=== PATIENT | male | born 1935 | race Caucasian/White ===

== ENCOUNTER → 2017-08-18 | Outpatient (CLI) | payer MEDICARE, OTHER ==
[~2017-08-18] MED LIST: ASPI81EC; ASPI81EC PO; METO100 PO; METO50ER PO; WARF5 PO
[2017-08-18 17:37] LABS: BASOPHILS ABSOLUTE AUTO 0.09 K/mm3 (0.00-0.23); BASOPHILS PERCENT AUTO 1 % (0-2); EOSINOPHILS ABSOLUTE AUTO 0.23 K/mm3 (0.00-0.68); EOSINOPHILS PERCENT AUTO 2 % (0-6); Hematocrit 33.6 % (37.0-53.0); IMMATURE GRAN PERCENT AUTO 1 % (0-1); LYMPHOCYTES ABSOLUTE AUTO 1.34 K/mm3 (0.84-5.20); LYMPHOCYTES PERCENT AUTO 12 % (21-46); MONOCYTES ABSOLUTE AUTO 1.04 K/mm3 (0.16-1.47); MONOCYTES PERCENT AUTO 9 % (4-13); Mean Corpuscular HGB 30.7 pg (26.0-34.0); Mean Corpuscular HGB Conc 32.7 g/dL (31.5-36.5); Mean Corpuscular Volume 94 fL (80-100); Mean Platelet Volume 9.6 fL (9.1-12.4); NEUTROPHILS ABSOLUTE AUTO 8.74 K/mm3 (1.96-9.15); NEUTROPHILS PERCENT AUTO 76 % (41-73); Platelet Count 494 K/mm3 (150-400); RDW Coefficient Variation 16.4 % (11.7-14.2); RDW Standard Deviation 55.8 fL (35.1-46.3); Red Blood Cell Count 3.58 M/mm3 (4.30-5.90); White Blood Cell Count 11.54 K/mm3 (4.00-11.30)
[2017-08-18 17:50] LABS: Alanine Aminotransfer (ALT/SGP 55 U/L (12-78); Albumin, Blood 3.2 g/dL (3.4-5.0); Albumin/Globulin Ratio 0.8 (0.8-1.8); Alk Phos 183 U/L (40-126); Anion Gap 8 mmol/L (6-16); Aspartate Aminotrans (AST/SGOT 52 U/L (12-37); Bilirubin, Total 0.7 mg/dL (0.1-1.0); Blood Urea Nitrogen 25 mg/dL (8-24); Bun/Creatinine Ratio 26.3 (12.0-20.0); CO2, Blood 26 mmol/L (21-32); Calcium, Blood 9.3 mg/dL (8.5-10.1); Chloride, Blood 101 mmol/L (98-108); Creatinine, Blood 0.95 mg/dL (0.60-1.20); Globulin, Blood 4.1 g/dL (2.2-4.0); Glomerular Filtration Rate >60 (60-); Glucose, Blood 103 mg/dL (70-99); Potassium, Blood 4.6 mmol/L (3.5-5.5); Sodium, Blood 135 mmol/L (136-145); Total Protein, Blood 7.3 g/dL (6.4-8.2); Troponin I 0.033 ng/mL (0.000-0.040)
== END ==
LOC: LAB EV 17:29
PROVIDERS: Internal Medicine
DX: I25.10 Atherosclerotic heart disease of native coronary artery without angina pectoris (principal)
CPT/HCPCS: 80053; 84484; 85025

== ENCOUNTER 2025-01-12 06:11 | Inpatient (IN) | payer MEDICARE, OTHER ==
[~2025-01-12] VITALS: Ht 172.7 cm; Wt 95.1 kg
[2025-01-12] MEDS ORDERED: METOPROLOL SUCC ER 5 (06:26)
[2025-01-12] MEDS ORDERED: Aspir 8181 MG PO (06:34)
[2025-01-12] MEDS ORDERED: METO25 PO (06:34)
[2025-01-12] MEDS ORDERED: GLUC500 PO (06:35)
[2025-01-12] MEDS ORDERED: CO Q10100 MG PO (06:36)
[2025-01-12] MEDS ORDERED: B-12500 MC2 PO (06:36)
[2025-01-12] MEDS ORDERED: HYDCHL25 PO (06:38)
[2025-01-12] MEDS ORDERED: LOSARTAN POTASS25 MG (06:38)
[2025-01-12 07:03] LABS: BASOPHILS ABSOLUTE AUTO 0.04 K/mm3 (0.00-0.23); BASOPHILS PERCENT AUTO 0 % (0-2); EOSINOPHILS ABSOLUTE AUTO 0.08 K/mm3 (0.00-0.68); EOSINOPHILS PERCENT AUTO 1 % (0-6); Hematocrit 46.0 % (37.0-53.0); Hemoglobin 15.3 g/dL (13.5-17.5); IMMATURE GRAN ABSOLUTE AUTO 0.04 K/mm3 (0.00-0.10); IMMATURE GRAN PERCENT AUTO 0 % (0-1); LYMPHOCYTES ABSOLUTE AUTO 1.14 K/mm3 (0.84-5.20); LYMPHOCYTES PERCENT AUTO 8 % (21-46); MONOCYTES ABSOLUTE AUTO 1.84 K/mm3 (0.16-1.47); MONOCYTES PERCENT AUTO 12 % (4-13); Mean Corpuscular HGB Conc 33.3 g/dL (31.5-36.5); Mean Corpuscular Volume 93 fL (80-100); NEUTROPHILS ABSOLUTE AUTO 11.94 K/mm3 (1.96-9.15); NEUTROPHILS PERCENT AUTO 79 % (41-73); NRBC ABSOLUTE 0.00 K/mm3 (0.00-0.02); NRBC Auto 0.0 /100 WBC (0.0-0.2); Platelet Count 149 K/mm3 (150-400); RDW Coefficient Variation 15.5 % (11.7-14.2); RDW Standard Deviation 53.3 fL (35.1-46.3)
[2025-01-12 07:13] LABS: Anion Gap 7.0 mmol/L (3-11); Blood Urea Nitrogen 28.0 mg/dL (8-24); CO2, Blood 19.0 mmol/L (21-32); Calcium, Blood 6.7 mg/dL (8.5-10.1); Chloride, Blood 119.0 mmol/L (98-108); Creatinine, Blood 0.8 mg/dL (0.60-1.20); Glucose, Blood 95.0 mg/dL (70-99); Potassium, Blood 3.3 mmol/L (3.5-5.5); Sodium, Blood 142.0 mmol/L (136-145)
[2025-01-12 07:27] LABS: Alanine Aminotransfer (ALT/SGP 21.0 U/L (12-78); Albumin, Blood 2.5 g/dL (3.4-5.0); Albumin/Globulin Ratio 0.9 (0.8-1.8); Aspartate Aminotrans (AST/SGOT 41.0 U/L (12-37); Bilirubin, Direct 0.1 mg/dL (0.0-0.3); Bilirubin, Indirect 0.3 mg/dL (0.1-0.7); Bilirubin, Total 0.4 mg/dL (0.1-1.0); Globulin, Blood 2.9 g/dL (2.2-4.0); Total Protein, Blood 5.4 g/dL (6.4-8.2)
[2025-01-12 07:55] LABS: Source, Urine Clean Catch
[2025-01-12] MEDS ORDERED: FentaNYL Citrate 50 MCG/ML 2 ML Injection IV ONE (08:20)
[2025-01-12 08:26] LABS: Bilirubin, Urine Neg (Neg); Color, Urine Yellow (P-Yellow); Glucose Qualitative, Urine Neg (Neg); Ketones, Urine Neg (Neg); Leukocyte Esterase, Urine Neg (Neg); Protein, Urine 1+ (Neg); Specific Gravity, Urine 1.015 (1.003-1.022); Urobilinogen, Urine NORM (Normal)
[2025-01-12] MEDS ORDERED: NS 1,000 ML IV SCH ×2 (08:55→15:00)
[2025-01-12] MEDS ORDERED: Lidocaine 2% Jelly Uro-Jet UR ONE (09:10)
[2025-01-12] MEDS ORDERED: Morphine Sulfate 4 MG/1 ML Injection IV ONE (12:35)
[2025-01-12] MEDS ORDERED: Ondansetron HCl 2 MG / ML 2ML Vial IV PRN (14:40)
[2025-01-12] MEDS ORDERED: HYDROmorphone HCl/Pf 1MG SYR IV PRN ×2 (14:45→17:25)
[2025-01-12 16:13] LABS: Magnesium, Blood 1.9 mg/dL (1.6-2.4)
[2025-01-12] MEDS ORDERED: METO50ER PO (17:06)
[2025-01-12] MEDS ORDERED: C COMPLEX1000 M1 PO (17:08)
[2025-01-12] MEDS ORDERED: Vitamin D1000 UNI1 PO (17:08)
[2025-01-12 17:31] VITALS: BP 91/78
[2025-01-12] MEDS ORDERED: Metoprolol Tartrate 1 MG/ML 5 ML VIAL IV PRN (17:45)
[2025-01-12] MEDS ORDERED: Morphine Sulfate 10 MG/ML 1MLSYR IV PRN (17:50)
[2025-01-12] MEDS ORDERED: Mag Hydrox/Al Hydrox/Simeth 18 ML,Lidocaine 2% Viscous Soln 9 ML,Atropine/Scopalam/Hyos... PO ONE (17:50)
--- NOTE | 2025-01-12 18:14 | NUR ---
PT ARRIVED IN THE UNIT FROM [facility], PT IS HERE FOR EPIGASTRIC PAIN WITH TACHYCARDIA. PT WAS A LITTLE DROWSY UPON ARRIVAL PT RECEIVED 0.5MG DOSE OF DILAUDID IV. FAMILY AT BEDSIDE AND WAS TIMOTEO TO PROVIDE INFORMATION. VITALS HRR AV PACED 60'S, SBP SOFT 80-90'S MAP >65, SATS ABOVE 90% ON 2L OF O2, PT HAS NOTICEABLE SLEEP APNEA DESATS TO LOW 80'S THEN COMES BACK UP TO 90'S WITH FAST BREATHING. PT REFUSED DINNER DUE TO ABDOMINAL DISCOMFORT, PT ABDOMEN IS DISTENDED, MADE AWARE ORDERED GI COCKTAIL. NS RUNNING AT 125MLS/HR. MOORE WAS PLACED IN THE ER DUE TO RETENTION, DRAINING YELLOW URINE VIA GRAVITY. PT RESTING AT THIS TIME. CALL LIGHTS IN REACH WILL REPORT TO ONCOMING SHIFT
--- NOTE | 2025-01-12 19:42 | NUR ---
ASSUMPTION OF CARE ASSUMED PT'S CARE AT 1900,BEDSIDE REPORT COMPLETED.PT WIDE AWAKE RESTING IN BED.PLAN OF CARE REVIEWED.IV FLUIDS INFUSING ORDERED.PT DENIES PAIN,DENIES NEEDS AT THIS TIME.CALL LIGHT AND PT'S ITEMS WITHIN REACH.MONITORING ONGOING PER CAREPLAN.
[2025-01-12 20:26] VITALS: BP 144/108
[2025-01-12 22:00] VITALS: BP 107/54
[2025-01-12 23:00] VITALS: BP 92/69
[2025-01-13] VITALS: BP 102/58
[2025-01-13 01:00] VITALS: BP 91/55
[2025-01-13 03:53] VITALS: BP 99/60
[2025-01-13 06:06] LABS: Alanine Aminotransfer (ALT/SGP 24.0 U/L (12-78); Albumin, Blood 3.3 g/dL (3.4-5.0); Albumin/Globulin Ratio 0.9 (0.8-1.8); Anion Gap 8.0 mmol/L (3-11); Aspartate Aminotrans (AST/SGOT 39.0 U/L (12-37); Bilirubin, Total 0.7 mg/dL (0.1-1.0); Blood Urea Nitrogen 31.0 mg/dL (8-24); CO2, Blood 22.0 mmol/L (21-32); Calcium, Blood 8.2 mg/dL (8.5-10.1); Chloride, Blood 109.0 mmol/L (98-108); Creatinine, Blood 1.21 mg/dL (0.60-1.20); Globulin, Blood 3.5 g/dL (2.2-4.0); Glucose, Blood 87.0 mg/dL (70-99); Potassium, Blood 4.8 mmol/L (3.5-5.5); Sodium, Blood 134.0 mmol/L (136-145); Total Protein, Blood 6.8 g/dL (6.4-8.2)
--- NOTE | 2025-01-13 07:06 | NUR ---
PT MONITORED THROUGH THE SHIFT.PT GIVEN PRN MORPHINE FOR EPIGASTRIC PAIN.PT REFUSED TO TAKE THE GI COCKTAIL.PT'S HR WENT UP TO 140'S BUT DID NOT SUSTAIN ONCE IN THE SHIFT .BP REMAIN SOFT BUT MAP WNL.PT DENIES PAIN,DENIES NEEDS AT THIS TIME.CALL LIGHT AND PT'S ITEMS WITHIN REACH.MONITORING ONGPOING PER JORGE.
[2025-01-13 08:01] VITALS: BP 119/54
[2025-01-13] MEDS ORDERED: Enoxaparin 40 MG/0.4 ML SYR SC SCH (09:00)
[2025-01-13] MEDS ORDERED: Cholecalciferol 1000 Unit Tablet (=25MCG) PO SCH (09:00)
[2025-01-13] MEDS ORDERED: CO ENZYME Q10 PO SCH (09:00)
[2025-01-13] MEDS ORDERED: Pantoprazole Sodium 40 MG Injection IV SCH ×2 (09:00→16:30)
[2025-01-13] MEDS ORDERED: Mag Hydrox/Al Hydrox/Simeth 18 ML,Lidocaine 2% Viscous Soln 9 ML,Atropine/Scopalam/Hyos... PO ONE (11:40)
[2025-01-13 11:44] VITALS: BP 101/67
--- NOTE | 2025-01-13 16:24 | NUR ---
SHIFT SUMMARY PATIENT IS AOX3-4. [facility], HAS HEARING AIDES. FAMILY AND SPOUSE IN ROOM T/O DAY TO ASSIST WITH QUESTIONS. PATIENT HAS UPPER GASTRIC REPORTS 12/17 AT [facility]. MEDICATED PER EMAR. PROTONIX STARTED TODAY. SURGICAL CONSULT TODAY. DR. WONG IN TO SEE PATIENT. NO NEW ORDERS/PROCEDURES. MOORE REMAINS IN PLACE. DRAINING TO GRAVITY. HEART HEALTHY DIET. ON TELE, SR 70-80S. OCCASIONAL TACHY IN 100S DOES NOT SUSTAIN. VSS, CALL LIGHT IN REACH.
--- NOTE | 2025-01-13 18:21 | NUR ---
TRANSFER REPORT TO [facility] TO ASSUME CARE, PATIENT TO GO TO ROOM 325, MEDICAL STATUS NO TELE.
[2025-01-13 19:34] VITALS: BP 105/62
[2025-01-14 03:01] VITALS: BP 115/78
--- NOTE | 2025-01-14 03:35 | NUR ---
SHIFT SUMMARY: AOX4. CURRENTLY ON 2L O2. MOORE IN PLACE, PATENT, DRAINING TO GRAVITY. PT IS COMPLAINING OF MODERATE TO SEVERE PAIN THROUGHOUT THE SHIFT. MORPHINE GIVEN PER eMAR. PT IS CONCERNED ABOUT NOT BEING ABLE TO EAT, BUT ADVISED PT TO EAT SMALL MEALS AND THAT PT COULD ALWAYS REQUEST SNACKS IF MEALS ARE TOO MUCH TO EAT AT ONCE. CALL LIGHT IS WITHIN REACH. BED IS LOW AND LOCKED.
[2025-01-14 06:14] LABS: Hematocrit 44.3 % (37.0-53.0); Hemoglobin 14.6 g/dL (13.5-17.5); Mean Corpuscular HGB Conc 33.0 g/dL (31.5-36.5); Mean Corpuscular Volume 95 fL (80-100); NRBC ABSOLUTE 0.00 K/mm3 (0.00-0.02); NRBC Auto 0.0 /100 WBC (0.0-0.2); Platelet Count 145 K/mm3 (150-400); RDW Coefficient Variation 16.3 % (11.7-14.2); RDW Standard Deviation 57.1 fL (35.1-46.3)
[2025-01-14 06:32] LABS: Anion Gap 7.0 mmol/L (3-11); Blood Urea Nitrogen 37.0 mg/dL (8-24); CO2, Blood 23.0 mmol/L (21-32); Calcium, Blood 8.4 mg/dL (8.5-10.1); Chloride, Blood 109.0 mmol/L (98-108); Creatinine, Blood 1.37 mg/dL (0.60-1.20); Glucose, Blood 85.0 mg/dL (70-99); Potassium, Blood 4.8 mmol/L (3.5-5.5); Sodium, Blood 134.0 mmol/L (136-145)
[2025-01-14 07:36] VITALS: BP 120/82
[2025-01-14] MEDS ORDERED: NS 1,000 ML IV SCH (13:00)
--- NOTE | 2025-01-14 13:26 | NUR ---
PT TAKEN TO DAY SURGERY PT TRANSFERED VIA CART TO DAY SURGERY AT THIS TIME. PT WAS A/OX4, HARD OF HEARING. PT WAS VERY SOB WITH EXCERTION WHEN GETTING UP FROM THE BED TO THE CART. THE ANITHESIOLOGIST CAME UP TO EVALUATE THE PT BEFORE TAKEING HIM TO DAY SURGERY. O2 WAS APPLIED TO THE PT
[2025-01-14] MEDS ORDERED: Etomidate 2MG / ML 10ML Vial ONE (13:29)
[2025-01-14] MEDS ORDERED: Benzocaine Oral Spray 0.5ML UD ONE (13:30)
--- NOTE | 2025-01-14 13:30 | NUR ---
01/14/25 1330 Berta Rollins History, Chart, Medications and Allergies reviewed before start of procedure. MONITOR INTACT WITH CONTINUOUS PULSE OXIMETRY, CONTINUOUS END TITAL CO2, 3-LEAD EKG AND INTERMITTENT BLOOD PRESSURE. O2 VIA POM INTACT THROUGHOUT SEDATION/PROCEDURE.
[2025-01-14 13:32] VITALS: BP 99/77
--- NOTE | 2025-01-14 13:33 | NUR ---
WHILE IN PATIENT'S ROOM, MEDICAL FLOOR 332, PATIENT BECAME SOB TRANSFERING TO [facility] FROM BED. DR BROCK FROM [facility] NOTIFIED AND CAME TO BEDSIDE TO CONSULT PATIENT FOR EGD. TRANSFERED PATIENT TO DAY SURGERY AT 1319 VIA [place] AND 4L O2/NC PER DR BROCK INSTRUCTION. PATIENT DENIES SOB AT THIS TIME AND APPEARS TO BE BREATHING WITHOUT EXERTION. LUNGS DIMINSIHED T/O, WHICH WAS REPORTED TO DR BROCK. 3 LEAD EKG BASELINE PRINTED AND DISCUSSED WITH DR BROCK.
--- NOTE | 2025-01-14 13:39 | NUR ---
PATIENT NOW STATES HE SOB. AUDITORY WHEEZING NOTED. DR BROCK AT BEDSIDE ORDERING DUO NEB NOW. , RYAN, AT BEDSIDE. BIOX 96% SOB.
[2025-01-14] MEDS ORDERED: Ipratropium/Albuterol SulF 2.5-0.5MG/3 ML Amp ONE (13:40)
[2025-01-14] MEDS ORDERED: Ondansetron HCl 2 MG / ML 2ML Vial IV PRN (13:50)
[2025-01-14] MEDS ORDERED: Labetalol HCL 5 MG/ML 4ML Injection (Single Dose) IV PRN (13:50)
[2025-01-14 14:35] VITALS: BP 117/58
[2025-01-14] MEDS ORDERED: Ipratropium/Albuterol SulF 2.5-0.5MG/3 ML Amp INH PRN (14:45)
[2025-01-14] MEDS ORDERED: Sucralfate 1000MG / 10ML UD BTL PO SCH (16:30)
--- NOTE | 2025-01-14 19:37 | NUR ---
SHIFT SUMMARY PT A&OX4, LOWER BRULE WITH ACUTE ENTRACTABLE EPIGASTRIC PAIN. MOORE IN PLACE DRAINING CLEAR YELLOW URINE. PT PUT NPO THIS MORNING FOR EGD. PRN MORPHINE EFFECTIVE FOR PAIN. PT ON 2L O2 D/T DESATTING OVER NIGHT WHILE SLEEPING AND FOR COMFORT. PT SATTING IN HIGH 90S UNTIL TRANSFER FROM BED TO [facility] FOR PROCEDURE, THEN DESATTED TO 83 ON ROOM AIR AND HEART RATE UP TO 113. ONCE O2 REAPPLIED SATS WENT UP TO 97% AND PT WENT TO PROCEDURE. PT TOLERATED EGD WELL, BUT WITH CARDIAC HISTORY TELE REORDERED, AV PACED AT 60. PT TOLERATING PROTONIX WELL, AND INCREASING ORAL INTAKE AND SLIGHTLY LESS PAIN THIS EVENING. CALL LIGHT IN REACH.
[2025-01-14] MEDS ORDERED: Morphine Sulfate 4 MG/1 ML Injection IV PRN (19:40)
[2025-01-14 20:00] VITALS: BP 112/75
[2025-01-15] VITALS (8 sets, daily range): BP systolic 98–124; BP diastolic 73–88
--- NOTE | 2025-01-15 05:49 | NUR ---
SUMMARY: PT REPO Q 2 OVERNIGHT. ON 2L NC, TRIED TO WEAN BUT GAVE 2MG MORPHINE PER EMAR AND HAD TO BRING BACK UP TO 2L NC. DENIES N/V THIS SHIFT. CALL LIGHT WITHIN REACH, BED IN LOW POSITION. MOORE IN PLACE, DRAINING TO GRAVITY.
[2025-01-15 06:31] LABS: Anion Gap 8.0 mmol/L (3-11); Blood Urea Nitrogen 35.0 mg/dL (8-24); CO2, Blood 23.0 mmol/L (21-32); Calcium, Blood 8.4 mg/dL (8.5-10.1); Chloride, Blood 107.0 mmol/L (98-108); Creatinine, Blood 1.32 mg/dL (0.60-1.20); Glucose, Blood 90.0 mg/dL (70-99); Potassium, Blood 4.7 mmol/L (3.5-5.5); Sodium, Blood 133.0 mmol/L (136-145)
[2025-01-15 09:18] LABS: BASOPHILS ABSOLUTE AUTO 0.05 K/mm3 (0.00-0.23); BASOPHILS PERCENT AUTO 0 % (0-2); EOSINOPHILS ABSOLUTE AUTO 0.14 K/mm3 (0.00-0.68); EOSINOPHILS PERCENT AUTO 1 % (0-6); Hematocrit 40.9 % (37.0-53.0); Hemoglobin 13.4 g/dL (13.5-17.5); IMMATURE GRAN ABSOLUTE AUTO 0.03 K/mm3 (0.00-0.10); IMMATURE GRAN PERCENT AUTO 0 % (0-1); LYMPHOCYTES ABSOLUTE AUTO 0.67 K/mm3 (0.84-5.20); LYMPHOCYTES PERCENT AUTO 6 % (21-46); MONOCYTES ABSOLUTE AUTO 1.63 K/mm3 (0.16-1.47); MONOCYTES PERCENT AUTO 14 % (4-13); Mean Corpuscular HGB Conc 32.8 g/dL (31.5-36.5); Mean Corpuscular Volume 95 fL (80-100); NEUTROPHILS ABSOLUTE AUTO 9.59 K/mm3 (1.96-9.15); NEUTROPHILS PERCENT AUTO 79 % (41-73); NRBC ABSOLUTE 0.00 K/mm3 (0.00-0.02); NRBC Auto 0.0 /100 WBC (0.0-0.2); Platelet Count 148 K/mm3 (150-400); RDW Coefficient Variation 16.2 % (11.7-14.2); RDW Standard Deviation 56.9 fL (35.1-46.3)
[2025-01-15] MEDS ORDERED: CefTRIAXone Sodium 1,000 MG in NS 100 ML IV SCH (14:00)
--- NOTE | 2025-01-15 20:29 | NUR ---
SHIFT SUMMARY- RECIEVED MULTIPLE CALLS FROM THE PT FAMILY. THEY ARE CONCERNED THE PT IS GETTING WEAKER AND WORSE NOT BETTER. THIS RN HAS CALLED DR MCKINLEY T/O THE DAY THEY EXPRESSED CONCERN WITH HIS INCREASED WEAKNESS. THE PT HAS SEVERE PAIN IN HAS SHOULDERS AND NECK. HE HAS ABD PAIN AND NAUSEA WELL. THE PT HR HAS BEEN ELEVATED TO THE 110'S ALL SHIFT, BUT NOTHING HIGH ENOUGH TO RAISE A RED FLAG. PT BP WAS LOW, BUT NOT TOO LOW. PT HAS LITTLE TO NO APPETITE, HE DOES NOT LIKE ANYTHING REMOTELY SWEET. AT 1830 THE PT SON CALLED AND PROVIDED HIS CONTACT INFORMATION. CALLED DR MCKINLEY TO SEE IF HE WOULD CALL AND TALK TO THAT SON RG TAO HOWEVER HE WAS NOT AVAILABLE TO DO SO 20 MINUTES PRIOR TO THE END OF SHIFT. THIS SON IS REQUESTING A TRANSFER OF THE PT TO [facility], THAT IS WHERE HIS FATHERS MARKETING INFORMATION ANALYST IS. THIS RN SPOKE TO DR MCKINLEY ABOUT THE PT TELE RYTHM. INITIALLY IT WAS CALLED ATRIAL TACHYCARDIA, BUT UNDER CLOSER REVIEW IT APPEARS TO BE JUNCTIONAL TACHYCARDIA. MD AWARE OF THIS. TROPONIN ORDERED BUT WAS NOT ANY DIFFERENT FROM PRIOR. THE PT WAS STARTED ON ANTIBIOTICS FOR A POSSIBLE RESPIRATORY INFECTION TODAY WELL. FAMILY CONVEYED CONCERN THAT THE PT HAS NOT RECIEVED A SHOWER. THIS RN AND THE CUSTOMER SALES ADVISOR WERTE UNABLE TO MAKE THAT HAPPEN D/T HIS PAIN AND FEELING ILL. PASSED ON TO NIGHT CUSTOMER SALES ADVISOR. THE PT WOULD LIKE A BED BATH TONIGHT. PT HAD A FULL LINNEN CHANGE YESTERDAY, ALTHOUGH THE PT FAMILY CONVEYED CONCERN THE PT HAS NOT HAD HIS SHEETS CHANGED SINCE ARRIVING HERE. THIS RN ATTEMPTED TO CONSOLE THE FAMILY AND APPOLOGIZE FOR THEIR EXPERIENCE, OFFERED THE PT ADVOCATE WHO CAME TO SEE THE PT AND FAMILY. EXPLAINED THAT THE DR AND STAFF ARE DOING EVERYTHING WE CAN TO CARE FOR THEIR LOVED ONE AND MAKE HIM BETTER, THIS RN HAS NOT BEEN HERE WITH HIM THIS WHOLE TIME AND CAN NOT CONFIRM OR DENY THEIR EXPERIENCE. THEY WOULD LIKE TO TALK TO THE DR AGAIN TOMORROW.
[2025-01-15] MEDS ORDERED: NS 500 ML IV SCH (23:45)
[2025-01-15] MEDS ORDERED: NS 1,000 ML BAG IR SCH (23:50)
[2025-01-16 00:11] VITALS: BP 105/69
[2025-01-16 04:38] VITALS: BP 112/56
--- NOTE | 2025-01-16 05:30 | NUR ---
SHIFT SUMMARY: Pt is admitted for intractable epigastric ABD pain ad is a full code. Is alert and able to make needs known. ADLs have been 1p. Pain has been managed with PRN medications. Elliot noted AV paced in the 60s with no events.
[2025-01-16 08:13] VITALS: BP 122/55
--- NOTE | 2025-01-16 08:26 | NUR ---
assumed care of pt- Bedside report completed with night rn. Pt sleeping soundly, very [place], does not wake to staff voices. After report was completed the pt recieved a bed bath. He was encouraged to perform oral care, hair was washed, and he was transfered (max assist with 2 staff) to the recliner chair. pt will require a lift to get back to the bed. Full linnen change was completed. Pt is extremely weak. He was unable to stand. His bed was raised to assist in transfer to the chair. Pt left arm is edematous and he is guarding it. Pt abdomen is firm and non-tender with audible bt in all 4 quads. Of note the pt denies the need for pain medicine, but jerks and cringes with any movement of either arm. Will speak to dr on morning rounds. Spouse arrived and is at the bedside. She has placed a cool cloth on his forehead, pt is afebrile but does not seem to feel well.
[2025-01-16] MEDS ORDERED: BRIMONIDINE TART5 M2 BOTHEYES (10:44)
[2025-01-16] MEDS ORDERED: VYZULTA5 ML LEFTEYE (10:45)
[2025-01-16] MEDS ORDERED: DORZOLAMIDE-TIM10 ML BOTHEYES (10:45)
[2025-01-16] MEDS ORDERED: REPATHA SU140 MG/1 M SC (10:46)
[2025-01-16 16:29] VITALS: BP 107/68
--- NOTE | 2025-01-16 18:19 | NUR ---
SHIFT SUMMARY- PT ALERT ANND ORIENTED. HE HAS BEEN VERY WEAK. CAME IN THIS MORNING AND WAS INFORMED OF THE EXTREME PAIN WITH MOVEMENT FOR THE PT LEFT SHOULDER. IMAGES WERE COMPLETED. THE PT WAS SEEN BY PT AND OT TODAY. THE PAIN HE IS HAVING SEEMS LIKE A ROTATOR CUFF INJURY, IMAGING RESULT SUPPORTS THEIR ASSESSMENT WELL. PT IS A MECHANICAL LIFT PT AT THIS TIME. HE IS SITTING UP IN BED, CALLL LIGHT IN REACH SPOUSE AT THE BEDSIDE, NO S&S OF DISTRESS NOTED. PAIN MEDICATION CHANGED TODAY FROM IV TO PO. PT ON TELE A PACED AT 66 THIS AM.
[2025-01-16 20:13] VITALS: BP 110/63
[2025-01-16 21:52] VITALS: BP 116/66
[2025-01-17 00:15] VITALS: BP 125/79
[2025-01-17 04:35] VITALS: BP 107/65
[2025-01-17 05:08] LABS: Hematocrit 37.0 % (37.0-53.0); Hemoglobin 12.4 g/dL (13.5-17.5); Mean Corpuscular HGB Conc 33.5 g/dL (31.5-36.5); Mean Corpuscular Volume 93 fL (80-100); NRBC ABSOLUTE 0.00 K/mm3 (0.00-0.02); NRBC Auto 0.0 /100 WBC (0.0-0.2); Platelet Count 182 K/mm3 (150-400); RDW Coefficient Variation 15.9 % (11.7-14.2); RDW Standard Deviation 54.5 fL (35.1-46.3)
[2025-01-17 05:29] LABS: Albumin, Blood 2.4 g/dL (3.4-5.0); Anion Gap 9 mmol/L (3-11); Blood Urea Nitrogen 37 mg/dL (8-24); CO2, Blood 21 mmol/L (21-32); Calcium, Blood 8.1 mg/dL (8.5-10.1); Chloride, Blood 109 mmol/L (98-108); Creatinine, Blood 1.29 mg/dL (0.60-1.20); Glucose, Blood 105 mg/dL (70-99); Magnesium, Blood 2.5 mg/dL (1.6-2.4); Phosphorus, Blood 1.9 mg/dL (2.5-4.9); Potassium, Blood 4.1 mmol/L (3.5-5.5); Sodium, Blood 135 mmol/L (136-145)
[2025-01-17 07:33] VITALS: BP 115/73
[2025-01-17] MEDS ORDERED: TAMS.4ER PO (11:30)
[2025-01-17] MEDS ORDERED: DOXY100 PO (11:30)
[2025-01-17] MEDS ORDERED: CARAFATE1 GM/10 M1 PO (11:30)
[2025-01-17] MEDS ORDERED: PANT20 PO (14:11)
--- NOTE | 2025-01-17 17:14 | NUR ---
DISCHARGE NOTE- PT ANMD SPOUSE WERE GIVEN VERBAL AND WRITTEN DISCHARGE INSTRUCTIONS AND ACKNOWLEDGED UNDERSTANDING OF THEM. CATHETER CARE WAS DEMONSTRATED WELL SWITCHING FROM BED BAG TO LEG BAG. THIS WAS TOO COMPLEICATED AND THE PT AND SPOUSE AGREED THE BED BAG WAS BEST. PT HAD A NEW STERILE BED BAG ATTACHED TO THE MOORE PRIUOR TO DISCHARGE. PT WAS ESCORTED OUT VIA WC BY THIS RN. FAMILY ASSISTED HIM INTO THE TRUCK. NO S&S OF DISTRESS NOTED AT THE TIME OF DISCHARGE.
== END 2025-01-17 15:55 | disposition home health service (06) | DRG 383 ==
LOC: ER 06:11 → PCU 14:39 → MEDS 01-13 14:52 → PCU 01-13 16:52 → MEDS 01-13 18:35
PROVIDERS: Family Medicine Adult Medicine; Internal Medicine; Student in an Organized Health Care Education/Training Program; ADMIT Internal Medicine
PROC: 0T9B70Z Drainage of Bladder with Drainage Device, Via Natural or Artificial Opening (ICD-10-PCS; principal; 2025-01-13)
PROC: 0DB98ZX Excision of Duodenum, Via Natural or Artificial Opening Endoscopic, Diagnostic (ICD-10-PCS; 2025-01-14)
PROC: 0DB78ZX Excision of Stomach, Pylorus, Via Natural or Artificial Opening Endoscopic, Diagnostic (ICD-10-PCS; 2025-01-14)
DX: K26.9 Duodenal ulcer, unspecified as acute or chronic, without hemorrhage or perforation (principal); J18.9 Pneumonia, unspecified organism; J96.01 Acute respiratory failure with hypoxia; I48.92 Unspecified atrial flutter; I47.19 Other supraventricular tachycardia; N32.0 Bladder-neck obstruction; K31.A19 Gastric intestinal metaplasia without dysplasia, unspecified site; K25.9 Gastric ulcer, unspecified as acute or chronic, without hemorrhage or perforation; M19.012 Primary osteoarthritis, left shoulder; K44.9 Diaphragmatic hernia without obstruction or gangrene; E78.5 Hyperlipidemia, unspecified; E66.9 Obesity, unspecified; H91.90 Unspecified hearing loss, unspecified ear; G47.33 Obstructive sleep apnea (adult) (pediatric); R33.9 Retention of urine, unspecified; R10.13 Epigastric pain; I25.10 Atherosclerotic heart disease of native coronary artery without angina pectoris; I44.0 Atrioventricular block, first degree; Z95.1 Presence of aortocoronary bypass graft; Z95.0 Presence of cardiac pacemaker; F17.210 Nicotine dependence, cigarettes, uncomplicated; Z79.82 Long term (current) use of aspirin; Z79.899 Other long term (current) drug therapy; E87.6 Hypokalemia; N18.30 Chronic kidney disease, stage 3 unspecified; Z68.31 Body mass index [BMI] 31.0-31.9, adult
CPT/HCPCS: 36415; 51702; 51798; 71046; 73030; 74177; 80048; 80053; 80069; 80076; 82330; 82947; 83605; 83690; 83735; 84484; 85025; 85027; 88305; 88342; 93005; 93010; 94760; 96361; 96374-59; 96375; 96376; 97110; 97116; 97163; 97166; 97530; 97535; 99285-25; A9270; G0378; J0696; J1171; J1650; J2270; J2405; J2470; J2704; J3010; J3480; J7030; J7040; J7050; J7120; Q9967

== ENCOUNTER 2025-01-19 09:23 | Observation (INO) | payer MEDICARE, OTHER ==
[~2025-01-19] VITALS: Ht 182.9 cm; Wt 96.1 kg
[~2025-01-19 09:23] MED LIST changes: +Aspir 8181 MG PO; +B-12500 MC2 PO; +BRIMONIDINE TART5 M2 BOTHEYES; +C COMPLEX1000 M1 PO; +CARAFATE1 GM/10 M1 PO; +CO Q10100 MG PO; +DORZOLAMIDE-TIM10 ML BOTHEYES; +DOXY100 PO; +GLUC500 PO; +HYDCHL25 PO; +LOSARTAN POTASS25 MG; +METO25 PO; +METOPROLOL SUCC ER 5; +PANT20 PO; +REPATHA SU140 MG/1 M SC; +TAMS.4ER PO; +VYZULTA5 ML LEFTEYE; +Vitamin D1000 UNI1 PO
[2025-01-19 11:06] LABS: Source, Urine Foley catheter
[2025-01-19 11:09] LABS: Bilirubin, Urine Neg (Neg); Color, Urine Yellow (P-Yellow); Glucose Qualitative, Urine Neg (Neg); Ketones, Urine Neg (Neg); Leukocyte Esterase, Urine 2+ (Neg); Protein, Urine 2+ (Neg); Specific Gravity, Urine 1.015 (1.003-1.022); Urobilinogen, Urine NORM (Normal)
[2025-01-19 11:16] LABS: Red Blood Cells, Urine 50-100 /hpf (0-2)
[2025-01-19] MEDS ORDERED: Polyethylene Glycol 3350 17 gm PO PRN (12:10)
[2025-01-19] MEDS ORDERED: LOSA25 PO (14:42)
[2025-01-19 14:49] VITALS: BP 102/62
--- NOTE | 2025-01-19 17:35 | NUR ---
SHIFT SUMMARY PATIENT ARRIVED TO MEDICAL FLOOR [id number]. A/O X4, HARD OF HEARING, HEARING AIDE TO RIGHT EAR ONLY. UNABLE TO STAND FOR TRANSFER AT THIS TIME, STAFF ASSISTED TO BED WITH SLIDE SHEET. MOORE IN PLACE, DRAINING FREELY TO GRAVITY YELLOW URINE. SKIN INTACT. AT BEDSIDE, VOICING CONCERNS OVER HIM RETURNING HOME SAFELY, STATED HE WASN'T ABLE TO MOBILIZE NEARLY AT ALL SINCE DISCHARGE ON MONDAY. CALL LIGHT IN REACH, CARES ONGOING.
[2025-01-19 19:52] VITALS: BP 101/71
[2025-01-19] MEDS ORDERED: Docusate Sodium/Senna 1 Tab PO SCH (21:00)
--- NOTE | 2025-01-20 04:38 | NUR ---
SHIFT SUMMARY: PT AOX4, CALLS APPROPRIATELY AND ABLE TO MAKE NEEDS KNOWN. SLEPT ALL NIGHT WITHOUT ISSUE. MOORE HAVING GOOD OUTPUT. PT [place]. TOLERATING MEDICATIONS WELL. VSS, NO ACUTE OVERNIGHT EVENTS. PT IN BED RESTING, BED IN LOWEST POSITION, CALL LIGHT IN REACH. CONTINUING CARE.
[2025-01-20 04:42] VITALS: BP 125/79
[2025-01-20] MEDS ORDERED: Sucralfate 1000MG / 10ML UD BTL PO SCH (07:30)
[2025-01-20 07:34] VITALS: BP 135/92
[2025-01-20] MEDS ORDERED: Brimonidine Tartrate 0.2% Opth 5 ml BOTHEYES SCH (09:00)
[2025-01-20] MEDS ORDERED: Cholecalciferol 1000 Unit Tablet (=25MCG) PO SCH (09:00)
[2025-01-20] MEDS ORDERED: Enoxaparin 40 MG/0.4 ML SYR SC SCH (09:00)
[2025-01-20] MEDS ORDERED: Dorzolamide/Timolol Opth Soln 10 ML BOTHEYES SCH (09:00)
[2025-01-20] MEDS ORDERED: [UNRECOGNIZED DRUG - OTHER] PO SCH (09:00)
[2025-01-20 15:49] VITALS: BP 131/96
--- NOTE | 2025-01-20 16:11 | NUR ---
SHIFT SUMMARY- PT ALERT AND ORIENTED, HE HAS BEEN PLEASENT AND COOPERATIVE WITH CARE. FAMILY HAS BEEN PREASENT T/O THE SHIFT. FAMILY ASSISTED THE PT TO THE BATHROOM ONCE THIS EVENING. PT IS CURRENTLY IN BED, CALL LIGHT IN REACH NO S&S OF DISTRESS NOTED. PT HAS A MOORE IN PLACE WITH A FEW CLOTS PRODUCED, MOORE IS PATENT AND DRAINING. PLAN IS FOR PT TO DC TO SNF FOR REHAB HE WAS UNABLE TO GET OUT OF HIS RECLINER AT HOME AFTER BEING DISCHARGED MONDAY. AWAITING ACCEPTANCE ABD BED AVAILABILITY AT [facility].
[2025-01-20 19:36] VITALS: BP 133/91
--- NOTE | 2025-01-21 04:55 | NUR ---
LANDSCAPING MANAGER SUMMARY: NO ACUTE EVENTS T/O SHIFT. DENIES PAIN. ORDER REC'D FOR MOORE R/T ACUTE RETENTION. PENDING D/C TO SNF. CALL LIGHT IN REACH. BED IN LOWEST POSITION. CARES ONGOING ORDERED.
[2025-01-21 05:18] VITALS: BP 119/81
[2025-01-21 07:38] VITALS: BP 129/82
[2025-01-21] MEDS ORDERED: PANT20 PO (09:14)
--- NOTE | 2025-01-21 14:02 | NUR ---
DISCHARGE PT/ROMÁN UNAWARE OF TRASNPORT TIME. TRANSPORT ARRIVED TO TRANSFER TO [facility]. PT DRESSED AND PACKED. THE VERY PATIENT W/C VOCATIONAL SERVICES SPECIALIST WAITED WHILE PT WAS PREPARED FOR TRANSFER. PAPERWORK GIVEN TO VOCATIONAL SERVICES SPECIALIST. ATTEMPTED TO CALL [facility] FOR REPORT. NO ANSWER. CARE ONGOING.
== END 2025-01-21 14:12 ==
LOC: ER 09:23 → ERHOLD 09:24 → MEDS 09:24
PROVIDERS: Emergency Medicine; ADMIT Internal Medicine
DX: R33.9 Retention of urine, unspecified (principal); Z74.09 Other reduced mobility; I47.19 Other supraventricular tachycardia; N18.30 Chronic kidney disease, stage 3 unspecified; K27.9 Peptic ulcer, site unspecified, unspecified as acute or chronic, without hemorrhage or perforation; J18.9 Pneumonia, unspecified organism; J96.01 Acute respiratory failure with hypoxia; M12.812 Other specific arthropathies, not elsewhere classified, left shoulder; E87.6 Hypokalemia; D72.829 Elevated white blood cell count, unspecified; F17.200 Nicotine dependence, unspecified, uncomplicated; Z95.1 Presence of aortocoronary bypass graft; Z79.82 Long term (current) use of aspirin; Z79.899 Other long term (current) drug therapy
CPT/HCPCS: 51702; 71045; 81001; 87086; 94760; 96372; 97110; 97116; 97161; 97530; 99284; A9270; G0378; J1650; J2470